=== PATIENT | male | born 1950 | race Caucasian/White ===

== ENCOUNTER 2017-02-02 20:03 | Emergency (ER) | payer OTHER ==
[~2017-02-02] VITALS: Ht 188 cm; Wt 70.3 kg
[2017-02-02 20:06] VITALS: BP 149/88
[2017-02-02] MEDS ORDERED: TRAMADOL 50 MG50 MG PO (20:36)
[2017-02-02] MEDS ORDERED: ACETAMINOPHEN-1 EAC1 PO (20:52)
== END 2017-02-02 20:58 | disposition home or self-care (01) ==
LOC: ER 20:03
DX: S00.262A Insect bite (nonvenomous) of left eyelid and periocular area, initial encounter (principal); W57.XXXA Bitten or stung by nonvenomous insect and other nonvenomous arthropods, initial encounter; Y93.89 Activity, other specified; Y92.89 Other specified places as the place of occurrence of the external cause; Y99.8 Other external cause status